=== PATIENT | female | born 1970 | race Caucasian/White ===

== ENCOUNTER 2019-08-23 10:28 | Day surgery (SDC) | payer OTHER ==
[~2019-08-23] VITALS: Ht 162.6 cm; Wt 59.4 kg
[2019-08-23 10:47] VITALS: BP 102/77; PULSE 80; TEMP 97.9
[2019-08-23] MEDS ORDERED: IMODIUM 2MG CAPS2 MG PO (10:51)
[2019-08-23 12:05] VITALS: BP 116/66; PULSE 68; TEMP 96.8
--- NOTE | 2019-08-23 12:05 | NUR ---
Pt to GI bay 6 via cart from ENDO. Pt drowsy, but awakens easily. Pt denies pain or nausea. Pt ambulates to recliner with stand by assistance x2. Warm blanket given. Pt falls asleep quickly after settled in chair. Will continue to monitor. Lights dimmed. Call light within reach.
[2019-08-23 12:20] VITALS: BP 99/62; PULSE 58
--- NOTE | 2019-08-23 12:20 | NUR ---
Pt sleeping. Respirations even and unlabored. Call light within reach.
[2019-08-23 12:35] VITALS: BP 100/58; PULSE 56
--- NOTE | 2019-08-23 12:35 | NUR ---
Pt continues to sleep. Respirations even and unlabored. Call light within reach.
[2019-08-23 12:53] VITALS: BP 93/61; PULSE 53
--- NOTE | 2019-08-23 12:53 | NUR ---
Pt resting in chair, no facial grimicing or moaning noted, VSS and WNL, call light within reach
[2019-08-23 13:20] VITALS: BP 100/73; PULSE 63
--- NOTE | 2019-08-23 13:20 | NUR ---
Pt waking up. into see pt. Jello and water given per pt request. Will continue to monitor. Call light within reach.
--- NOTE | 2019-08-23 13:40 | NUR ---
Discharge instructions reviewed. Pt voices understanding. IV site discontinued with all parts intact. Pt up to dress. Call light within reach.
--- NOTE | 2019-08-23 13:50 | NUR ---
Pt escorted to private car via wheel chair. Pt accompanied home by her .
== END 2019-08-23 13:50 | disposition home or self-care (01) ==
LOC: SDCO 10:28
DX: K63.5 Polyp of colon (principal); K63.89 Other specified diseases of intestine; R19.7 Diarrhea, unspecified; Z85.038 Personal history of other malignant neoplasm of large intestine; Z86.010 Personal history of colon polyps; Z92.3 Personal history of irradiation; Z92.21 Personal history of antineoplastic chemotherapy; Z87.891 Personal history of nicotine dependence
CPT/HCPCS: J2250; J2405; J3010; J7030

== ENCOUNTER 2023-11-02 11:26 | Day surgery (SDC) | payer OTHER ==
[~2023-11-02] VITALS: Ht 160 cm; Wt 55.7 kg
[~2023-11-02 11:26] MED LIST: IMODIUM 2MG CAPS2 MG PO; LR 1,000 ML IV SCH; Ondansetron 4 MG/2 ML VIAL IV PRN
[2023-11-02] MEDS ORDERED: fentaNYL 50 MCG/ML 2 ML VIAL ONE (14:15)
[2023-11-02] MEDS ORDERED: Lidocaine PF 2% (20 MG/ML) 5 ML VIAL ONE (14:15)
[2023-11-02 14:45] VITALS: BP 113/76; PULSE 57; TEMP 97
[2023-11-02 14:50] VITALS: BP 126/84; PULSE 54; TEMP 97.9
[2023-11-02 15:00] VITALS: BP 127/69; PULSE 48
[2023-11-02] MEDS ORDERED: PROTONIX 40MG T40 MG PO (15:05)
[2023-11-02] MEDS ORDERED: ZOFRAN 4MG T4 MG/TAB PO (15:05)
--- NOTE | 2023-11-02 16:26 | NUR ---
1445- PT RETURNS FROM ENDO PROCEDURE VIA CART AND RN ASSIST TO GI BAY 2. PT AMBULATES FROM CART TO RECLINER. MONITORS ON AND ALARMS SET. CALL LIGHT WITHIN REACH. REPORT RECEIVED FROM TREVOR MAST. PT ALERT AND ORIENTED. PT REQUESTED FOOD AND DRINK. 1500- PT TOLERATING FOOD AND DRINK WELL. 1515- IV DC'D. TIP INTACT. 1530- DISCHARGE INSTRUCTIONS GIVEN TO PT. ALL QUESTIONS ANSWERED. 1545- PT TRANSFERED OUT OF THE HOSPITAL VIA WHEELCHAIR TO PERSONAL VEHICLE.
== END 2023-11-02 15:45 ==
LOC: SDCO 11:26
DX: Z12.11 Encounter for screening for malignant neoplasm of colon (principal); Z86.010 Personal history of colon polyps; Z85.038 Personal history of other malignant neoplasm of large intestine; Z85.048 Personal history of other malignant neoplasm of rectum, rectosigmoid junction, and anus; Z87.891 Personal history of nicotine dependence
CPT/HCPCS: J2704; J3010